=== PATIENT | male | born 1930 | race Two or more races ===

== ENCOUNTER 2016-12-16 01:17 | Inpatient (IN) | payer MEDICARE, MEDICAID ==
[~2016-12-16] VITALS: Ht 165.1 cm; Wt 68.0 kg
[2016-12-16 01:30] VITALS: BP 64/36
--- NOTE | 2016-12-16 02:32 | Emergency Room Report ---
History of Present Illness General Chief Complaint: Altered Level of Consciousness Source: Family Member, EMS Present Illness HPI Patient is 86-year-old male brought in by EMS after increased difficulty breathing as well as hypotension. Patient noted have a prior history of liver cancer. Patient had previously been hospitalized at [facility]. The patient was recently started on hospice. The patient was noted to have recent increase in oxygen demand. Patient was noted to have a decreased urine output. The hospice nurse was having difficulty placing a Zimmerman catheter. The patient was noted be taking pain medications. He was not other medications this time. The patient is a comfort care patient. Allergies: Coded Allergies: No Known Allergies (Unverified , 12/16/16) Patient History Past Medical History: see triage record Reviewed Nursing Documentation: PMH: Agreed, PSxH: Agreed Nursing Documentation-PMH Hx Hypertension: Yes Hx Diabetes: Yes Hx Cancer: Yes - LIVER CA Review of Systems All Other Systems: limited - by mental status Physical Exam Vital Signs Date Time Temp Pulse Resp B/P Pulse Ox O2 Delivery O2 Flow Rate FiO2 12/16/16 01:08 97.9 113 19 64/36 100 Non-Rebreather 15.0 Sp02 EP Interpretation: abnormal General Appearance: severe distress, Chronically Ill Eyes: bilateral eye other - pinpoint pupils Neck: limited range of motion Respiratory: respiratory distress, crackles, rales Cardiovascular #1: tachycardia Gastrointestinal: distended, hepatomegaly Musculoskeletal: normal inspection Neurologic: motor weakness, other - poor alertness Skin: normal inspection, normal color, no rash Medical Decision Making Diagnostic Impression: Primary Impression: Altered level of consciousness Additional Impressions: Need for comfort care Cancer ER Course Patient presented for altered level consciousness and shortness of breath.Differential included but was not limited to anemia, pneumonia, pneumothorax, myocardial infarction, pericardial effusion, congestive heart failure, acidosis. Patient's history and wishes were discussed with patient's family. Patient was noted to have been on hospice care. Patient was unable to have comfort needs met at hospice and was sent to the hospital for increased oxygen demand. Patient was started on supplemental oxygen. The patient will be given comfort measures only. Last Vital Signs Date Time Temp Pulse Resp B/P Pulse Ox O2 Delivery O2 Flow Rate FiO2 12/16/16 01:30 97.9 107 19 64/36 100 Non-Rebreather 15.0 Status: unchanged Disposition: PLACE IN OBSERVATION Condition: Raghu Sam Dupont Dec 16, 2016 02:32
[2016-12-16] MEDS ORDERED: D5 1/2NS 1,000 ML IV SCH (02:45)
[2016-12-16 03:30] VITALS: BP 71/48
[2016-12-16 05:56] VITALS: BP 86/38
[2016-12-16] MEDS ORDERED: DILAUDID1 MG/1 ML (06:45)
[2016-12-16] MEDS ORDERED: HYDROmorphone 1mg/ml Carpuject IM PRN (07:00)
[2016-12-16] MEDS ORDERED: Miralax 17gm pkt ORAL PRN (07:00)
[2016-12-16] MEDS ORDERED: LORazepam Inj 2mg/ml 1ml IV PRN (07:00)
[2016-12-16] MEDS ORDERED: Mylanta II UD 30ml ORAL PRN (07:00)
[2016-12-16] MEDS ORDERED: Zolpidem 5mg tab ORAL PRN (07:00)
[2016-12-16 08:00] VITALS: BP 79/32
[2016-12-16 12:00] VITALS: BP 66/29
--- NOTE | 2016-12-16 15:47 | History and Physical ---
History of Present Illness General Date patient seen: Dec 16, 2016 Reason for Hospitalization: Altered Level of Consciousness Present Illness HPI 86-year-old male with metastatic cancer brought in by EMS after increased difficulty breathing. The patient was recently started on hospice. The patient was noted to have recent increase in oxygen demand. He had also a decreased urine output and the hospice nurse was having difficulty placing a Zimmerman catheter. therefore family members called the 911 because of lack of oxygen as well. Allergies: Coded Allergies: MORPHINE (Verified Allergy, Unknown, 12/16/16) Medication History Miscellaneous Medications Hydromorphone Hcl (Dilaudid), 0.5 MG, (Reported) Patient History Healthcare decision maker Resuscitation status Advanced Directive on File Past Medical/Surgical History Past Medical/Surgical History: (1) Cancer (2) Liver cancer Review of Systems All Other Systems: negative except mentioned in HPI Physical Exam General Appearance: lethargic, cachetic, thin Lines, tubes and drains: peripheral HEENT: normocephalic, atraumatic Neck: non-tender, normal alignment Respiratory/Chest: chest wall non-tender, lungs clear Cardiovascular/Chest: normal peripheral pulses, normal rate Abdomen: normal bowel sounds, non tender Last 24 Hour Vital Signs Date Time Temp Pulse Resp B/P Pulse Ox O2 Delivery O2 Flow Rate FiO2 12/16/16 12:00 97.9 99 21 66/29 99 Non-Rebreather 15.0 12/16/16 08:00 98.1 108 24 79/32 100 Non-Rebreather 15.0 12/16/16 05:56 98.1 109 18 86/38 100 Non-Rebreather 15.0 12/16/16 04:25 98.1 111 19 78/46 100 Non-Rebreather 15.0 12/16/16 03:30 98.1 104 21 71/48 100 Non-Rebreather 15.0 12/16/16 01:30 97.9 107 19 64/36 100 Non-Rebreather 15.0 12/16/16 01:08 97.9 113 19 64/36 100 Non-Rebreather 15.0 Intake and Output 12/15/16 12/16/16 19:00 07:00 Intake Total 200 ml Balance 200 ml Intake IV Total 200 ml Height (Feet): 5 Height (Inches): 5.00 Weight (Pounds): 150 Medications Current Medications Medications (Trade) Dose Ordered Sig/Roya Route PRN Reason Start Time Stop Time Status Last Admin Dose Admin Acetaminophen (Tylenol) 650 mg Q4H PRN ORAL fever 12/16/16 07:00 01/15/17 06:59 Dextrose (Dextrose 50%) STAT PRN IV Hypoglycemia 12/16/16 07:00 01/15/17 06:59 Hydromorphone HCl (Dilaudid) 1 mg EVERY 2 HOURS PRN IM pain 7-10 12/16/16 07:00 12/16/16 18:00 Hydromorphone HCl (Dilaudid) 2 mg EVERY 3 HOURS IM 12/16/16 18:00 12/23/16 17:59 UNV Lorazepam (Ativan 2mg/ml 1ml) 2 mg Q4H IV 12/16/16 19:00 12/23/16 18:59 UNV Ondansetron HCl (Zofran) 4 mg Q6H PRN IVP Nausea & Vomiting 12/16/16 07:00 01/15/17 06:59 Polyethylene Glycol (Miralax) 17 gm HSPRN PRN ORAL Constipation 12/16/16 07:00 01/15/17 06:59 Zolpidem Tartrate (Ambien) 5 mg HSPRN PRN ORAL Insomnia 12/16/16 07:00 01/15/17 06:59 Assessment/Plan Problem List: (1) Need for comfort care SNOMED: 617794981 (2) Altered level of consciousness ICD Codes: R40.4 - Transient alteration of awareness SNOMED: 6558215 (3) Liver cancer ICD Codes: C22.9 - Liver cancer SNOMED: 47879241 (4) Cancer ICD Codes: C80.1 - Malignant (primary) neoplasm, unspecified SNOMED: 265774945 Assessment/Plan IV ativan and morphine vitas signs every 12 hours give Narcotics even if bp is low. FLORY TRINIDAD Dec 16, 2016 15:47
[2016-12-16] MEDS: LORazepam Inj 2mg/ml 1ml IV SCH ×2 (19:00→21:55)
[2016-12-17] MEDS: LORazepam Inj 2mg/ml 1ml IV SCH ×2 (03:00→06:50)
[2016-12-17 05:45] VITALS: BP 0/0
--- NOTE | 2016-12-20 12:38 | Discharge Summary ---
Discharge Summary Hospital Course Date of Admission Dec 16, 2016 at 03:40 Date of Discharge Dec 17, 2016 at 08:35 Admitting Diagnosis metastatic cancer,comfort care HPI Guilherme Correa is a 86 year old male who was admitted on Dec 16, 2016 at 03:40 for Metastatic Cancer,Comfort Care Hospital Course summary # [id number] Discharge Discharge Disposition Patient pronounced at 0550 12/17/16' DNR/DNI status Comfort care Discharge Diagnoses: Discharge Instructions Discharge Instructions Special Instructions I have been assigned to complete a D/C Summary on this account. I was not involved in the patient management Radha Torres NP ([place]) Dec 20, 2016 12:38
--- NOTE | 2016-12-21 02:07 | Discharge Summary 2 SIG ---
DATE OF ADMISSION: 12/16/2016 DATE OF DISCHARGE: 12/17/2016 REASON FOR ADMISSION: 86-year-old male with metastatic liver cancer and hypertension, brought in to ED for increased difficulty breathing. The patient recently was started on the hospice services. Prior to that patient was hospitalized at [facility]. The patient noted to have a difficulty breathing as well as decreased urinary output. The hospice nurse had difficulty placing Zimmerman catheter. Upon arrival to the emergency room, the patient with palliative/ comfort care , DNR/DNI status. The patient immediately was placed on 100% nonrebreather mask with pulse oximetry reaching 100%. Blood pressure was 64/36 on admission with pulse rate of 113. The patient was afebrile- at 97.9 degrees. At that time, the patient already demonstrated acute deterioration in clinical condition. Physical exam revealed pinpoint pupils as well as the crackles and scattered rales. The patient was poorly responsive. No labs were done since the patient was on comfort measures only. The patient was admitted to the hospital for comfort measures. ADMITTING DIAGNOSES: 1. Acute respiratory failure. 2. Acute encephalopathy. 3. Metastatic liver cancer. 4. Palliative/comfort care. HOSPITAL STAY: The patient admitted to the hospital for comfort measures. The patient was on supplemental oxygen via 100% nonrebreathing mask. Comfort measures provided. Pain management provided. Anxiolytic administered as needed. Bowel regimen provided. The patient was DNR/DNI status. Skin care provided. Patient's condition continued to deteriorate given impending shock and acute respiratory failure along with metastatic liver disease. The patient was pronounced on 12/17/2016 at 05:50 am. Cause of : cardiopulmonary arrest. FINAL DIAGNOSES: 1. Acute hypoxemic respiratory failure requiring nonrebreathing mask. 2. Acute encephalopathy. 3. Metastatic liver cancer. 4. Palliative/comfort care. Kamran Novak M.D. I have been assigned to dictate discharge summary on this account and I was not involved in the patient's management. Radha ChristensenCrouse HospitalChantale Kumar DR: [place] JOB#: [id number] CC: ANGIE
== END 2016-12-17 08:35 | disposition expired | DRG 281 ==
LOC: EDBD 01:17 → EMR 02:00 → EDBEDREQ 02:45 → 3E 03:40 → EDBEDREQ 03:53
DX: C78.7 Secondary malignant neoplasm of liver and intrahepatic bile duct (principal); J96.01 Acute respiratory failure with hypoxia; G93.40 Encephalopathy, unspecified; C80.1 Malignant (primary) neoplasm, unspecified; Z51.5 Encounter for palliative care; R40.4 Transient alteration of awareness; Z66 Do not resuscitate; I10 Essential (primary) hypertension; E11.9 Type 2 diabetes mellitus without complications